=== PATIENT | male | born 1965 | race Asian ===

== ENCOUNTER 2016-12-13 22:27 | Emergency (ER) | payer OTHER ==
[~2016-12-13] VITALS: Ht 160 cm; Wt 65.8 kg
--- NOTE | 2016-12-13 22:40 | NUR ---
BIB SON, PT C/O ABSCESS ON RIGHT ARMPIT. PT AOX3 RR EVEN AND UNLABORED. NO SOB NOTED. NAD NOTED. NO NVD AT THIS TIME. PT NOT DIAPHORETIC. PT GOWNED WAITING FOR MD SZYMANSKI.
--- NOTE | 2016-12-14 00:26 | NUR ---
DR. FLORES AT BEDSIDE FOR EVAL.
[2016-12-14] MEDS ORDERED: LIDOCAINE HCL/PF 1% 30 ML VIAL TP ONE (00:30)
[2016-12-14] MEDS ORDERED: LIDOCAINE HCL/MPF 1% 30 ML VIAL IJ ONE (00:32)
--- NOTE | 2016-12-14 01:11 | NUR ---
Magali holbrook in [place] - 12/14/16 at 0112 by [email or web address] FR
--- NOTE | 2016-12-14 01:12 | NUR ---
DR. FLORES AT BEDSIDE FOR I/D
[2016-12-14] MEDS ORDERED: CEPHALEXIN MONOHYDRATE 500 MG CAPSULE PO ONE ×2 (01:29→01:30)
[2016-12-14] MEDS ORDERED: HYDROCODONE/APAP 5/325MG 1 EACH TABLET ONE (01:29)
[2016-12-14] MEDS ORDERED: HYDROCODONE/APAP 5/325MG 1 EACH TABLET PO ONE (01:30)
[2016-12-14] MEDS ORDERED: ONDANSETRON 4 MG TAB.RAPDIS SL ONE (01:30)
[2016-12-14] MEDS ORDERED: ONDANSETRON 4 MG TAB.RAPDIS ONE (01:30)
[2016-12-14] MEDS ORDERED: SULFAMETH/TRIMETH 800/160 MG 1 UDTAB TABLET PO ONE ×2 (01:30)
--- NOTE | 2016-12-14 01:40 | NUR ---
Patient discharged to home in stable condition. Written and verbal after care instructions given. Patient verbalizes understanding of instruction. ambulatory with a steady gait. instructed not to drive. pt verbalize understanding. pt accompanied by rn.
[2016-12-14 02:31] VITALS: BP 124/78
== END 2016-12-14 02:32 | disposition home or self-care (01) ==
LOC: ER 22:27
DX: L02.411 Cutaneous abscess of right axilla (principal)
CPT/HCPCS: 10060; 99284; A4606; A6402; A6403; J3490 ×2; Q0162; Z7610

== ENCOUNTER 2017-03-01 22:25 | Emergency (ER) | payer OTHER ==
[~2017-03-01] VITALS: Ht 172.7 cm; Wt 68.0 kg
[2017-03-01 22:55] VITALS: BP 130/80
== END 2017-03-01 23:19 | disposition home or self-care (01) ==
LOC: ER 22:25
DX: L84 Corns and callosities (principal); K12.0 Recurrent oral aphthae
CPT/HCPCS: A4606; Z7610

== ENCOUNTER 2018-01-04 13:54 | Emergency (ER) | payer OTHER ==
[~2018-01-04] VITALS: Ht 160 cm; Wt 57.2 kg
[2018-01-04 13:54] VITALS: BP 125/73
== END 2018-01-04 16:53 | disposition home or self-care (01) ==
LOC: ER 13:57
DX: M25.532 Pain in left wrist (principal); W01.0XXA Fall on same level from slipping, tripping and stumbling without subsequent striking against object, initial encounter; Y93.89 Activity, other specified; Y92.89 Other specified places as the place of occurrence of the external cause; Y99.8 Other external cause status
CPT/HCPCS: 29125; 73110; 99283; A4606; Z7610

== ENCOUNTER 2019-04-16 22:30 | Emergency (ER) | payer OTHER ==
[~2019-04-16] VITALS: Ht 162.6 cm; Wt 54.9 kg
[2019-04-16 22:36] VITALS: BP 128/77
[2019-04-16] MEDS ORDERED: KETOROLAC TROMETHAMINE INJ 60 MG/2 ML VIAL IM ONE ×2 (22:51→23:00)
== END 2019-04-16 23:04 | disposition home or self-care (01) ==
LOC: ER 22:32
DX: M54.5 Low back pain (principal)
CPT/HCPCS: 96372; 99283; J1885

== ENCOUNTER 2019-04-18 17:16 | Emergency (ER) | payer OTHER ==
[~2019-04-18] VITALS: Ht 165.1 cm; Wt 59.9 kg
--- NOTE | 2019-04-18 17:30 | NUR ---
INTERMITTENT L SIDED CHEST PAIN 08/17, SHARP, NON RADIATING X2DAYS. PATIENT A/OX4, BREATHING EVEN AND UNLABORED, NO SOB NOTED, NEEDS ATTENDED, KEPT COMFORTABLE.
[2019-04-18] MEDS ORDERED: ACETAMINOPHEN ES 500 MG TABLET ONE (17:44)
[2019-04-18 17:59] LABS: BASOPHILS % (AUTO) 0.6 % (0.0-2.0); EOSINOPHILS % (AUTO) 1.8 % (0.0-6.0); HEMATOCRIT 43 % (39-51); HEMOGLOBIN 14.1 g/dL (13.5-17.5); LYMPHOCYTES # (AUTO) 1.8 /CMM (0.8-4.8); LYMPHOCYTES % (AUTO) 33.7 % (20.0-44.0); MEAN CORPUSCULAR HGB CONC 32 g/dl (31.0-36.0); MEAN CORPUSCULAR VOLUME 87 fL (80-96); MONOCYTES # (AUTO) 0.4 /CMM (0.1-1.30); MONOCYTES % (AUTO) 8.2 % (2.0-12.0); NEUTROPHILS % (AUTO) 55.7 % (43.0-81.0); PLATELET COUNT (AUTO) 237 /CMM (150-450); RED BLOOD CELL COUNT(AUTO) 4.98 MIL/uL (4.5-6.0); WHITE BLOOD COUNT (AUTO) 5.4 K/uL (4.3-11.0)
[2019-04-18] MEDS ORDERED: MAG HYDROX/AL HYDROX/SIMETH 30 ML UDC PO ONE (18:00)
[2019-04-18] MEDS ORDERED: BELLADONNA /PHENOBARB 5 ML UDC 5 ML UDC PO ONE (18:00)
[2019-04-18] MEDS ORDERED: LIDOCAINE VISCOUS 2% UD 15 ML UDC MM ONE (18:00)
[2019-04-18] MEDS ORDERED: ACETAMINOPHEN ES 500 MG TABLET PO ONE (18:00)
[2019-04-18] MEDS ORDERED: LIDOCAINE VISCOUS 2% UD 15 ML UDC ONE (18:01)
[2019-04-18] MEDS ORDERED: MAG HYDROX/AL HYDROX/SIMETH 30 ML UDC ONE (18:01)
[2019-04-18 18:07] LABS: CALCIUM, SERUM 9.3 mg/dL (8.5-10.1); CARBON DIOXIDE 28 mmol/L (21-32); CHLORIDE 108 mmol/L (98-107); CREATININE 1.1 mg/dL (0.6-1.3); GLUCOSE 109 mg/dL (74-106); POTASSIUM 4.5 mmol/L (3.5-5.1); SODIUM SERUM 144 mmol/L (136-145); UREA NITROGEN, BLOOD 13 mg/dL (7-18)
[2019-04-18 18:13] LABS: ALANINE AMINOTRANSFERASE 30 U/L (12-78); ALBUMIN 3.9 g/dL (3.4-5.0); ALKALINE PHOSPHATASE 52 U/L (46-116); ASPARTATE AMINOTRANSFERASE 23 U/L (15-37); BILIRUBIN,DIRECT 0.1 mg/dL (0.0-0.2); BILIRUBIN,TOTAL 0.3 mg/dL (0.2-1.0); TOTAL PROTEIN, SERUM 7.6 g/dL (6.4-8.2)
[2019-04-18 18:47] VITALS: BP 131/67
--- NOTE | 2019-04-18 18:47 | NUR ---
PATIENT DENIES CHEST PAIN, NO DISTRESS NOTED, AMBULATORY WITH STEADY GAIT. Patient discharged to home in stable condition. Written and verbal after care instructions given. Patient verbalizes understanding of instruction.
== END 2019-04-18 18:48 | disposition home or self-care (01) ==
LOC: ER 17:20
DX: R07.89 Other chest pain (principal)
CPT/HCPCS: 36415; 71045-TC; 80048-TC; 80076-TC; 84484-TC; 85025-TC